=== PATIENT | female | born 2000 | race Two or more races ===

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

== ENCOUNTER 2024-10-15 10:30 | Emergency (ER) | payer MEDICAID ==
[~2024-10-15] VITALS: Ht 165.1 cm; Wt 84.0 kg
[~2024-10-15 10:30] MED LIST: PREN-96 PO
[2024-10-15 11:12] VITALS: BP 113/65; PULSE 84; RESP 18; TEMP 98; O2SAT 99
[2024-10-15] MEDS: HYDROcodone-ACET 5/325MG TAB PO ONE (11:31)
[2024-10-15] MEDS: methylPREDNISolone SOD SUCC 125 MG/2 ML VL IM ONE (11:31)
[2024-10-15] MEDS: KETOROLAC TROMETH 30 MG/ML 1ML VIAL IM ONE (11:32)
[2024-10-15] MEDS ORDERED: LIDO5DIS21 TOP (11:40)
[2024-10-15] MEDS ORDERED: METH4PAK PO (11:40)
[2024-10-15] MEDS ORDERED: IBUP-1456 PO (11:40)
--- NOTE | 2024-10-15 11:40 | ED.PDOC ---
Back pain HPI HPI Comments Pleasant 24-year-old female with no pertinent MHx presents with a chief complaint of atraumatic lower back pain x1 day that radiates down the right posterior lower extremity. Onset was sudden and occurred suddenly while patient was standing. Never had this before but reports symptoms are aggravated with ambulation and improves at rest has tried [id number] ibuprofen with some improvement. Denies history of chronic steroid use or history of osteoporosis Denies any history of cancer Denies fevers chills night sweats nausea vomiting unintentional weight loss Denies IV drug use history of HIV/TB Denies abdominal "tearing" pain Denies syncope Denies urinary incontinence or urinary changes Denies numbness tingling of the groin or inner thigh Denies previous back procedure or surgery Chief Complaint: Back Pain Time Seen by MD: 10:49 Reviewed Notes: Nurses Notes, Medications, Allergies Allergies: Coded Allergies: Penicillins (Verified Allergy, Unknown, 06/27/17) Home Meds Reported Medications Vit W/ Ferrous Fumara ( One Daily) Daily Tab, 1 TAB PO DAILY, #90 TAB 3 Refills 06/29/17 Information Source: Patient Mode of Arrival: Wheelchair Family History Family History: Reviewed,noncontributory to illness Social History Smoker: Non-Smoker Alcohol: Denies ETOH Use Drugs: Denies Drug Use All Other Systems: Reviewed and Negative (Per HPI) Physical Exam General Appearance: No Apparent Distress, Normal HEENT: Normal ENT Inspection, Pharynx Normal, TMs Normal Neck: Full Range of Motion, Non-Tender, Normal, Normal Inspection Respiratory: Chest Non-Tender, Lungs Clear, No Accessory Muscle Use, No Respiratory Distress, Normal Breath Sounds Cardiovascular: No Edema, No JVD, No Murmur, No Gallop, Normal Peripheral Pulses, Regular Rate/Rhythm Breast Exam: Deferred Gastrointestinal: No Organomegaly, Non Tender, No Pulsatile Mass, Normal Bowel Sounds, Soft Genitalia: Deferred Pelvic: Deferred Rectal: Deferred Extremities: No calf tenderness, Normal capillary refill, Normal inspection, Normal range of motion, Non-tender, No pedal edema Musculoskeletal : Extremity Location: Back (Normal on inspection. No midline tenderness. No step-offs. Right straight leg raise test positive) Apperance: Normal Neurologic: Alert, buffing wheel inspector II-XII nml as Tested, No Motor Deficits, Normal Affect, Normal Mood, No Sensory Deficits Cerebellar Function: Normal Reflexes: Normal Skin: Dry, Normal Color, Warm Lymphatic: No Adenopathy Was a procedure done? Was a procedure done?: No Back Pain Differential Dx Differential Diagnosis: Musculoskeletal Pain X-Ray, Labs, Meds, VS Vital Signs Date Time Temp Pulse Resp B/P (MAP) Pulse Ox O2 Delivery O2 Flow Rate FiO2 10/15/24 11:12 84 18 99 Room Air 10/15/24 11:12 98.0 84 18 113/65 (81) 99 98.0 10/15/24 10:48 98.8 84 18 113/65 (81) 99 Current Medications Medications (Trade) Dose Ordered Sig/Tamela Route Start Time Stop Time Status Last Admin Ketorolac Tromethamine (Toradol Injection) 30 mg ONCE ONCE IM 10/15/24 11:30 10/15/24 11:31 DC 10/15/24 11:32 Methylprednisolone Sodium Succinate (Solu Medrol) 125 mg ONCE ONCE IM 10/15/24 11:30 10/15/24 11:31 DC 10/15/24 11:31 Acetaminophen/ Hydrocodone Bitart ([place] 5/325MG Tab) 1 tab ONCE ONCE PO 10/15/24 11:30 10/15/24 11:31 DC 10/15/24 11:31 X-Ray, Labs, Meds, VS Comment History and physical exam consistent with no red flags. No indication for imaging or labs at this time. Findings consistent with sciatica Supportive care advised (rest, ice, heat, NSAIDs, stretching exercises) Ibuprofen 600 mg every 8 hours with food as needed for the pain Consider duloxetine for chronic back pain Massage muscles with cold pack or ice for 20 minutes 4 times per day. Usually most useful if there is swelling during the first 48 hours Heating pad on the most painful area for 20 minutes to relieve muscle spasm Sleep and the most comfortable sleeping position (usually on the side with knees bent) Light stretching, no strenuous activity, avoid frequent bending, avoid carrying heavy objects Discussed possible benefits of yoga and acupuncture Return precautions discussed including Inability to walk/bear weight Paresthesia/weakness/leg pain Fecal/urinary incontinence Any worsening symptoms Time of 1ST Reevaluation: 11:38 Reevaluation 1ST: Improved Patient Education/Counseling: Diagnosis, Treatment Family Education/Counseling: Diagnosis, Treatment Departure 1 Departure Time of Disposition: 11:38 Impression: Primary Impression: Sciatica Qualified Codes: M54.31 - Sciatica, right side Disposition: HOME / SELF CARE / HOMELESS Condition: Stable e-Prescriptions Lidocaine (LIDODERM 5% TOPICAL PATCH) 1 Patch Ph 1 PATCH TOP DAILY for 30 Days, #30 PATCH 0 Refills Prov: LAURIE OTT NP 10/15/24 Methylprednisolone (Medrol Dosepak) 4 Mg [place] 4 MG PO UD for 7 Days, #21 TAB 0 Refills [facility] Prov: LAURIE OTT NP 10/15/24 Ibuprofen (Ibuprofen) 800 Mg Tab 1 TAB PO TID for 14 Days, #42 TAB 0 Refills Prov: LAURIE OTT NP 10/15/24 Discharged With: Relative Critical Care Note Critical Care Time?: No Stability Stability form required: No Heart Score Heart Score: Heart Score Response (Comments) Value History N/A 0 EKG N/A 0 Age N/A 0 Risk Factors N/A 0 Troponin N/A 0 Total 0 LAURIE OTT NP Oct 15, 2024 11:40
== END 2024-10-15 11:51 | disposition home or self-care (01) ==
LOC: ER 10:30
DX: M54.31 Sciatica, right side (principal); Z88.0 Allergy status to penicillin
CPT/HCPCS: 96372; 99284; J1885; J2919